=== PATIENT | female | born 1970 | race Caucasian/White ===

== ENCOUNTER → 2021-06-19 | Outpatient (CLI) | payer MEDICARE ==
[~2021-06-19] MED LIST: ACCUNEB SO1.25 MG/1; ADDERALL 15 MG15 MG; BACTRIM DS TAB1 EACH PO; CLEOCIN HCL150 MG PO; DAZIDOX20 MG; DOXYCYCLINE 10100 M1; GABAPENTIN 100100 MG PO; HYDROCODON-ACE1 EAC5; HYDROCODON-ACE1 EAC5 PO; HYDROCODON-ACE1 EAC7; IBUPROFEN 800800 M1 PO; KLOR-CON 1010 MEQ PO; MORPHINE SULFAT15 M1; NORTRIPTYLINE H25 M3 PO; OXYCODON-ACETA1 EAC1; OXYCODONE HCL10 MG PO; OXYCONTIN30 MG PO; SPORANOX100 M1; XANAX1 MG PO; ZUPLENZ4 MG PO; [UNRECOGNIZED DRUG - REMARK]
== END | disposition home or self-care (01) ==
LOC: M.LAB 15:30
PROVIDERS: ATTEND Surgery
DX: Z01.812 Encounter for preprocedural laboratory examination (principal); Z20.822 Contact with and (suspected) exposure to COVID-19; K42.0 Umbilical hernia with obstruction, without gangrene; F32.9 Major depressive disorder, single episode, unspecified; F41.9 Anxiety disorder, unspecified; Z98.890 Other specified postprocedural states; Z79.899 Other long term (current) drug therapy

== ENCOUNTER → 2021-06-20 | Day surgery (SDC) | payer MEDICARE, MEDICAID ==
--- NOTE | ~2021-06-20 | OP ---
[facility] [address] [place] [address] OPERATIVE REPORT Name: RIZWAN SALCEDO Room: [facility]#: [id number] Admission: 06/20/21 Attend Phys: Zana Pierre Discharge: Date of : 68 Report #: [id number] THIS REPORT FOR: cc: Domenica Sutton Ghaison F. DO Patterson,Zana Wilson MD ~ DATE OF SURGERY: 06/20/2021 PREOPERATIVE DIAGNOSIS: Incarcerated umbilical hernia. POSTOPERATIVE DIAGNOSIS: Incarcerated umbilical hernia. OPERATION: Laparoscopic repair of incarcerated umbilical hernia with mesh. SURGEON: Zana Pierre MD ANESTHESIA: General. ESTIMATED BLOOD LOSS: Minimal. SPECIMENS: None. DESCRIPTION OF PROCEDURE: After informed consent was obtained, the patient was brought to the operating room and placed supine. SCDs were placed and working, preoperative antibiotics were administered, general anesthesia was induced. The abdomen was prepped and draped in the usual sterile fashion. A 5-mm incision was made in the left upper quadrant. A 5-mm trocar was placed under direct vision. Pneumoperitoneum was established. Left-sided 8-mm trocar and a right-sided 5 mm trocar was placed. The umbilicus was identified. There was preperitoneal fat that was incarcerated. This is all reduced. Defect measured less than 1 cm. An 11-cm Bard Ventralight mesh was inserted. It was tacked to the abdominal wall covering the defect widely. The ports were then removed under direct vision. The skin was closed with 4-0 Monocryl. Incisions were dressed with Steri-Strips. COMPLICATIONS: None. DISPOSITION: The patient was taken to recovery in satisfactory condition. By: [id number] Pierre MD /nt
[2021-06-20 07:04] LABS: HEMATOCRIT 41.3 % (37.0-47.0); HEMOGLOBIN 13.4 gm/dL (12.0-15.0); MCH 29.2 pg (26.0-34.0); MCHC 32.4 g/dL (28.0-37.0); MCV 90.1 fL (80.0-100.0); MPV 8.3 fl. (7.2-11.1); RBC 4.59 mil/uL (4.20-5.00); RDW-CV 14.3 % (10.5-14.5); WBC 8.9 thou/uL (4.0-11.0)
[2021-06-20 07:27] LABS: CALCIUM 8.9 mg/dL (8.5-10.1)
== END | disposition home or self-care (01) ==
LOC: M.SUR 06:02
PROVIDERS: ATTEND Surgery
DX: K42.0 Umbilical hernia with obstruction, without gangrene (principal); F41.9 Anxiety disorder, unspecified; F32.9 Major depressive disorder, single episode, unspecified; F17.210 Nicotine dependence, cigarettes, uncomplicated; G89.29 Other chronic pain; Z98.890 Other specified postprocedural states; Z79.899 Other long term (current) drug therapy; Z88.0 Allergy status to penicillin; Z88.8 Allergy status to other drugs, medicaments and biological substances

== ENCOUNTER 2021-12-03 09:19 | Emergency (ER) | payer OTHER, MEDICARE, MEDICAID ==
[~2021-12-03] VITALS: Ht 165.1 cm; Wt 81.7 kg
[2021-12-03] MEDS ORDERED: PERCOCET 10-321 EACH PO (09:33)
[2021-12-03] MEDS ORDERED: NORTRIPTYLINE H75 M1 PO (09:33)
[2021-12-03] MEDS ORDERED: SEROQUEL 100 M100 M1 PO (09:34)
[2021-12-03] MEDS ORDERED: DIAZEPAM 10 MG10 M1 PO (09:34)
[2021-12-03 11:46] VITALS: BP 141/99
== END 2021-12-03 11:46 | disposition home or self-care (01) ==
LOC: M.ERS 09:19
DX: S42.021A Displaced fracture of shaft of right clavicle, initial encounter for closed fracture (principal); S20.211A Contusion of right front wall of thorax, initial encounter; G50.0 Trigeminal neuralgia; F41.9 Anxiety disorder, unspecified; F32.9 Major depressive disorder, single episode, unspecified; F17.210 Nicotine dependence, cigarettes, uncomplicated; Z79.899 Other long term (current) drug therapy; Z88.0 Allergy status to penicillin; W50.0XXA Accidental hit or strike by another person, initial encounter; Y93.89 Activity, other specified; Y92.89 Other specified places as the place of occurrence of the external cause; Y99.8 Other external cause status